=== PATIENT | male | born 1985 | race Caucasian/White ===

== ENCOUNTER 2023-12-01 08:58 | Day surgery (SDC) | payer BC, OTHER ==
[~2023-12-01 08:58] MED LIST: Lactated Ringers 1,000 ML IV SCH; Sodium Chloride 0.9% 10 ML Syringe FLUSH PRN; Sodium Chloride 0.9% 10 ML Syringe FLUSH SCH
[2023-12-01] MEDS ORDERED: Albuterol 6.7 GM Inhaler INH ONE (09:00)
[2023-12-01] MEDS ORDERED: Gabapentin 300 MG Cap PO SCH (09:07)
[2023-12-01] MEDS ORDERED: Acetaminophen 325 MG Tab PO SCH (09:07)
[2023-12-01] MEDS ORDERED: Omeprazole 20 MG Cap.CR PO ONE (09:45)
[2023-12-01] MEDS ORDERED: Lidocaine 1% 6 ML ONE (11:38)
[2023-12-01] MEDS ORDERED: Succinylcholine 200 MG/10 ML MDV ONE (11:38)
[2023-12-01] MEDS ORDERED: Propofol 200 MG/20 ML SDV ONE (11:38)
[2023-12-01] MEDS ORDERED: fentaNYL 250 MCG/5 ML SDV ONE (11:38)
[2023-12-01] MEDS ORDERED: Midazolam 1 MG/ML 2 ML SDV ONE (11:38)
[2023-12-01] MEDS ORDERED: Rocuronium 50 MG/5 ML Vial ONE (11:40)
[2023-12-01] MEDS ORDERED: Lactated Ringers 1,000 ML ONE (11:45)
[2023-12-01] MEDS ORDERED: ceFAZolin 2 GM Vial ONE (12:01)
[2023-12-01] MEDS ORDERED: EPINEPHrine 1 MG/ML SDV ONE (12:13)
[2023-12-01] MEDS ORDERED: Bupivacaine 0.5% 30 ML SDV ONE (12:13)
[2023-12-01] MEDS ORDERED: Lidocaine 1% 30 ML SDV ONE (12:13)
[2023-12-01] MEDS ORDERED: Ondansetron 4 MG/2 ML SDV ONE (12:24)
[2023-12-01] MEDS ORDERED: Albuterol 0.083% 2.5 MG/3 ML Neb Soln ONE (12:35)
[2023-12-01] MEDS ORDERED: Ketorolac 30 MG/ML SDV ONE (12:49)
[2023-12-01] MEDS ORDERED: Neostigmine Methylsulfate 10 MG/10 ML MDV ONE (13:00)
[2023-12-01] MEDS ORDERED: Metoclopramide 10 MG/2 ML SDV ONE (13:30)
[2023-12-01] MEDS ORDERED: HYDROmorphone 0.5 MG/0.5 ML Syringe IVPUSH PRN (13:54)
[2023-12-01] MEDS ORDERED: fentaNYL 100 MCG/2 ML SDV IVPUSH PRN (13:54)
== END 2023-12-01 17:20 | disposition home or self-care (01) ==
LOC: JD.SDS 08:58
PROVIDERS: ATTEND Surgery
DX: K42.9 Umbilical hernia without obstruction or gangrene (principal); E66.01 Morbid (severe) obesity due to excess calories; Z68.34 Body mass index [BMI] 34.0-34.9, adult; Z98.890 Other specified postprocedural states; Z79.899 Other long term (current) drug therapy
CPT/HCPCS: A9270-GY; C1781; J0171; J0330; J0665; J0690; J1885; J2250; J2405; J2704; J2710; J2765; J3010; J3490; J7120; J7620-GY

== ENCOUNTER 2023-12-11 11:17 | Emergency (ER) | payer BC ==
[2023-12-11 11:35] LABS: BASOPHILS ABSOLUTE AUTO 0.1 K/mm3 (0.0-0.2); BASOPHILS PERCENT AUTO 0.4 % (0.0-1.0); EOSINOPHILS ABSOLUTE AUTO 0.1 K/mm3 (0.0-0.4); EOSINOPHILS PERCENT AUTO 1.1 % (0.0-6.0); IMMATURE GRAN ABSOLUTE AUTO 0.07 K/mm3 (0.00-0.05); IMMATURE GRAN PERCENT AUTO 0.6 % (0.0-0.4); LYMPHOCYTES PERCENT AUTO 39.4 % (24.0-44.0); MEAN CORPUSCULAR HEMOGLOBIN 29.2 pg (28.0-32.0); MEAN CORPUSCULAR HGB CONC 33.3 g/dl (32.0-36.0); MEAN CORPUSCULAR VOLUME 87.6 fl (83.0-99.0); MEAN PLATELET VOLUME 11.3 fl (9.4-12.4); MONOCYTES PERCENT AUTO 7.8 % (0.0-8.0); NEUTROPHILS ABSOLUTE AUTO 6.4 K/mm3 (1.8-7.7); NEUTROPHILS PERCENT AUTO 50.7 % (41.0-71.0); PLATELET COUNT,PLT 302 K/mm3 (150-400); RED BLOOD CELL COUNT 5.82 M/mm3 (4.52-5.90); WHITE BLOOD CELL COUNT,WBC 12.68 K/mm3 (3.9-11.3)
[2023-12-11] MEDS: Metoprolol Tartrate 25 MG Tab PO ONE (11:42)
[2023-12-11] MEDS: Sodium Chloride 0.9% 10 ML Syringe FLUSH PRN (11:53)
[2023-12-11 11:58] LABS: ALBUMIN 4.2 g/dl (3.4-5.0); ANION GAP 18.3 (5-15); BILIRUBIN TOTAL 0.8 mg/dL (0.2-1.0); BUN/CREATININE RATIO 12.3 (14-18); CALCIUM 9.2 mg/dL (8.5-10.1); CREATININE 1.3 mg/dL (0.7-1.3); EST CRCL DRUG DOSING (CG) 79.55 mL/min; MAGNESIUM 2.2 mg/dL (1.8-2.4); POTASSIUM,K 4.3 mEq/L (3.5-5.1); PROTEIN TOTAL,TP 8.5 g/dl (6.4-8.2)
[2023-12-11 12:57] LABS: TSH 3.54 uIU/mL (0.358-3.74)
[2023-12-11] MEDS: Sodium Chloride 0.9% 1,000 ML IV SCH (14:11)
[2023-12-11] MEDS: Ondansetron 4 MG/2 ML SDV IVPUSH ONE (14:11)
[2023-12-11] MEDS: Adenosine 12 MG/4 ML SDV ONE (14:54)
[2023-12-11] MEDS: Adenosine 6 MG/2 ML SDV ONE (14:54)
== END 2023-12-11 15:25 | disposition home or self-care (01) ==
LOC: JD.ED 11:17
DX: I47.10 Supraventricular tachycardia, unspecified (principal); E86.0 Dehydration
CPT/HCPCS: 36415; 71045; 80053; 83735; 84443; 84484; 85025; 93005; 96361; 96374; 99285; A9270; J2405; J3490; J7030; 93010; 99284